=== PATIENT | male | born 1965 | race Caucasian/White ===

== ENCOUNTER 2017-01-29 16:27 | Emergency (ER) | payer BC ==
[2017-01-29] MEDS ORDERED: PROVENTIL 2.5 MG/3 ML NEB IH ONE ×2 (16:51→17:02)
[2017-01-29] MEDS ORDERED: DECADRON 10MG INJ. IM ONE (16:52)
[2017-01-29] MEDS ORDERED: DECADRON 10MG INJ. ONE (17:04)
--- NOTE | 2017-01-29 17:11 | ERPHSYRPT ---
- History of Present Illness Time Seen by Provider: 01/29/17 16:32 Source: patient Patient Subjective Stated Complaint: here for cough, congestion for 2 weeks, was even biaxin and finished last dose yesterday,pt feels he is no better. Triage Nursing Assessment: pt walked in,resp easy, skin w/d pink, coughing up green sputum, no fever Physician History: CC: congestion HX: 51 y/o patient of Dr Veronica Mg. He has cough, sinus drng, congestion, chest tight with cough for 2 weeks. 's oncologist gave him biaxin which he finished yesterday. No fever or chills. He continues to have some cough. He is worried his will get sick as she is being treated for cancer. He was reported to be allergic to pcn as a child. He has taken keflex fine in the past. He had child gonzalez asthma. Nonsmoker. Timing/Duration: week(s) (2) Allergies/Adverse Reactions: Penicillins Allergy (Verified 01/29/17 16:39) Home Medications: Esomeprazole Magnesium [Nexium] 20 mg DAILY 01/29/17 [History] Meloxicam 7.5 mg DAILY 01/29/17 [History] Hx Influenza Vaccination/Date Given: Yes Hx Pneumococcal Vaccination/Date Given: No Immunizations Up to Date: Yes - Review of Systems Constitutional: Malaise, No Fever, No Chills Eyes: No Symptoms Ears, Nose, & Throat: Nose Congestion, Sinus Drainage Respiratory: Cough Abdominal/Gastrointestinal: No Nausea, No Vomiting Skin: No Rash Neurological: No Headache All Other Systems: Reviewed and Negative - Past Medical History Pertinent Past Medical History: Yes GI Medical History: GERD - Past Surgical History Past Surgical History: Yes Musculoskeletal: Orthopedic Surgery Other Surgical History: shoulder - Social History Smoking Status: Never smoker Exposure to second hand smoke: No Drug Use: none Patient Lives Alone: No - Nursing Vital Signs Nursing Vital Signs: Initial Vital Signs Temperature 98.4 F 01/29/17 16:33 Pulse Rate 87 01/29/17 16:33 Respiratory Rate 16 01/29/17 16:33 Blood Pressure 133/80 01/29/17 16:33 O2 Sat by Pulse Oximetry 95 01/29/17 16:33 Pain Scale Pain Intensity 0 - Physical Exam General Appearance: alert Eye Exam: PERRL/EOMI Ears, Nose, Throat Exam: moist mucous membranes, pharyngeal erythema Neck Exam: normal inspection, non-tender, supple Respiratory Exam: normal breath sounds, lungs clear, No respiratory distress, No wheezing Cardiovascular Exam: regular rate/rhythm Gastrointestinal/Abdomen Exam: soft, No tenderness, No distention Extremity Exam: No calf tenderness, No pedal edema Neurologic Exam: alert, oriented x 3, cooperative Skin Exam: warm, dry, No rash SpO2 Interpretation: normal SpO2: 95 Oxygen Delivery: Room Air - Course Nursing assessment & vital signs reviewed: Yes - Radiology Exams cxr X-ray Interpretation: Interpreted by me, No Pneumonia Ordered Tests: Active Orders 24 hr Category Date Time Status CHEST 2 VIEWS (PA AND LAT) Stat Exams 01/29/17 16:51 Taken Respiratory Nebulizer STAT RT 01/29/17 16:51 Active Medication Summary Discontinued Medications Generic Name Dose Route Start Last Admin Trade Name Freq PRN Reason Stop Dose Admin Albuterol Sulfate 2.5 mg 01/29/17 16:51 Proventil 2.5 Mg/3 Ml Neb IH 01/29/17 16:52 STAT ONE Dexamethasone Sodium Phosphate 10 mg 01/29/17 16:52 Decadron 10mg Inj. IM 01/29/17 16:53 STAT ONE - Progress Progress Note: 01/29/17 17:11 He requested steroid injection. Decadron given. Advised dark honey, symptom Rx, and albuterol MDI. He wants another abtx. Was counselled this is likely viral. Ceftin given to cover sinusitis. Counseled pt/family regarding: diagnosis, need for follow-up, rad results - Departure Time of Disposition: 17:12 Departure Disposition: Home Clinical Impression: Sinobronchitis Condition: Stable Critical Care Time: No Referrals: VERONICA MG [Primary Care Provider] - Instructions: Sinusitis, Bronchitis Additional Instructions: Rx ceftin Rx albuterol MDI You were given steroid injection Follow up next week with Dr Veronica Mg Your chest xray will have final report in AM sent to Dr Mg Prescriptions: Albuterol Sulfate [Albuterol Sulfate Hfa] 2 puff IH Q4-6HPRN PRN #1 [id number] PRN Reason: cough or wheeze Cefuroxime Axetil 500 mg [Ceftin 500 mg] 1 tab PO BID #20 tablet
[2017-01-29] MEDS ORDERED: CEFTIN 500 MG PO ONE (17:15)
[2017-01-29 17:37] VITALS: BP 168/71; PULSE 70; O2SAT 98
--- NOTE | 2017-01-29 19:48 | XRAY ---
Indication: Cough and congestion. Comparison: None PA/lateral chest hyperinflated and clear. Heart is not enlarged. Vascularity normal. Bony thorax intact. Impression: Nonacute hyperinflated chest.
== END 2017-01-29 17:45 | disposition home or self-care (01) ==
LOC: ED 16:27
DX: J32.9 Chronic sinusitis, unspecified (principal); J40 Bronchitis, not specified as acute or chronic; R05 Cough; R07.89 Other chest pain
CPT/HCPCS: 71020; 82962; 94640; 96372; 99283; J1100; A9270-GY